=== PATIENT | male | born 1970 | race African-American/Black ===

== ENCOUNTER → 2016-05-22 | Outpatient (CLI) | payer OTHER ==
--- NOTE | 2016-05-24 07:12 | EEG ---
DATE OF PROCEDURE: 05/22/2016 REFERRING PHYSICIAN: Dr. Steven Okeefe. DIAGNOSIS: Urinary incontinence. EEG NUMBER 17 - [id number] HISTORY: Patient is a 46-year-old male with history of shaking and tremor during sleep. He had one episode of urinary incontinence during these episodes. This EEG was done to rule out epileptic potential. He is currently on lisinopril, Zoloft and Zyrtec. TECHNICAL DESCRIPTION: This digital EEG was recorded by 21 scalp, ear and two EKG electrodes and was reviewed in bipolar and referential montages following reformatting in 10-20 international electrode placement system. INTERPRETATION: The patient was noted to be in awake and drowsy states during this EEG. Resting awake background consisted of 9 Hertz alpha activity measuring 15 - 40 microvolts in amplitude which was symmetric and reactive to eye opening. Attenuation of posterior dominant rhythm was seen during transition into drowsiness. Stage I and II sleep was reviewed and were symmetric bilaterally. Hyperventilation and photic stimulation remained unremarkable. EKG revealed normal sinus rhythm. No focal, lateralizing or epileptiform abnormalities were seen. No clinical or electrographic seizures were recorded. CONCLUSION: This EEG in awake, drowsy states, stage I and II sleep is within normal limits.
== END ==
LOC: M SLEEP 09:04
PROVIDERS: ATTEND Psychiatry & Neurology Child & Adolescent Psychiatry
DX: R25.1 Tremor, unspecified (principal)

== ENCOUNTER → 2016-07-24 | Outpatient (CLI) | payer OTHER ==
--- NOTE | 2016-07-26 08:38 | EEG ---
DATE OF PROCEDURE: 07/24/2016 REFERRING PHYSICIAN: Dr. Steven Okeefe. DIAGNOSIS: Convulsions. EEG NUMBER: 17 - 122. HISTORY: The patient is a 46-year-old male with history of urinary incontinence. He has episodes of body shaking while sleeping. This EEG was done to rule out epileptic potential. He is currently taking Topamax, Prazosin, Zoloft, lisinopril, Zyrtec. INTERPRETATION: The patient was noted to be in awake and drowsy states during this EEG. Resting awake background rhythm consisted of well-formed posterior dominant rhythm with anterior/posterior gradient comprising of 10 Hertz alpha activity measuring 15-40 microvolts in amplitude which was symmetric and reactive to eye opening. Attenuation of posterior dominant rhythm was seen during transition into drowsiness. Anteriorly low voltage mixed frequencies were noted. Stage I sleep was reviewed and was symmetric bilaterally. Hyperventilation elicited mild theta slowing of background rhythm. Photic stimulation remained unremarkable. EKG revealed normal sinus rhythm. No focal, lateralizing or epileptiform abnormalities were seen. No clinical or electrographic seizures were recorded. CONCLUSION: This EEG in awake, drowsy states, stage I sleep is within normal limits.
== END ==
LOC: M SLEEP 09:16
PROVIDERS: ATTEND Psychiatry & Neurology Child & Adolescent Psychiatry
DX: G40.909 Epilepsy, unspecified, not intractable, without status epilepticus (principal)

== ENCOUNTER → 2017-07-28 | Outpatient (CLI) | payer OTHER ==
[~2017-07-28] MED LIST: ISOVUE-370 76% 100ML VIAL (Q9967) As Ordered
== END ==
LOC: M RAD 09:39
DX: J94.8 Other specified pleural conditions (principal)
CPT/HCPCS: Q9967

== ENCOUNTER → 2017-08-14 | Outpatient (CLI) | payer OTHER ==
[~2017-08-14] MED LIST changes: +CONRAY-43 43% 50ML VIAL (Q9960) As Ordered; -ISOVUE-370 76% 100ML VIAL (Q9967) As Ordered; +PROHANCE 279.3MG/ML 5ML VIAL (A9576) As Ordered
== END ==
LOC: M RADPRO 06:57
DX: S46.011A Strain of muscle(s) and tendon(s) of the rotator cuff of right shoulder, initial encounter (principal); M65.849 Other synovitis and tenosynovitis, unspecified hand; M19.011 Primary osteoarthritis, right shoulder; M94.211 Chondromalacia, right shoulder; M71.311 Other bursal cyst, right shoulder; M25.511 Pain in right shoulder; Y92.89 Other specified places as the place of occurrence of the external cause; Y93.89 Activity, other specified; X58.XXXA Exposure to other specified factors, initial encounter; Y99.8 Other external cause status
CPT/HCPCS: 23350

== ENCOUNTER → 2017-08-18 | Outpatient (CLI) | payer OTHER | LOC: M RADPRO 07:02 | DX: S43.80XA Sprain of other specified parts of unspecified shoulder girdle, initial encounter (principal); M25.512 Pain in left shoulder; Y92.89 Other specified places as the place of occurrence of the external cause; Y93.89 Activity, other specified; X58.XXXA Exposure to other specified factors, initial encounter; Y99.8 Other external cause status | CPT/HCPCS: 23350 ==